=== PATIENT | male | born 1985 | race Hispanic/Latino ===

== ENCOUNTER 2018-03-31 11:30 | Emergency (ER) | payer SELFPAY | END 2018-03-31 12:37 | disposition home or self-care (01) | LOC: M ED 11:30 | DX: H10.31 Unspecified acute conjunctivitis, right eye (principal) | CPT/HCPCS: 99283 ==

== ENCOUNTER 2019-01-27 08:50 | Emergency (ER) | payer OTHER, SELFPAY ==
[~2019-01-27] VITALS: Ht 154.9 cm; Wt 59.6 kg
[~2019-01-27 08:50] MED LIST: ERYTOIN8 OD
[2019-01-27 08:51] VITALS: BP 121/63
--- NOTE | 2019-01-27 09:44 | REP ---
Trauma. PRIORS: None. TECHNIQUE: 4.5 mm contiguous transaxial sections were obtained from the skull base to the cerebral convexities with thin cuts through the posterior fossa without the administration of intravenous contrast. FINDINGS: The ventricles and sulci are consistent with the patient's age. There are no extra-axial fluid collections. There is no mass effect. The deep cerebral white matter is consistent with the patient's age. The orbital and petrous structures , cerebellopontine angles, and posterior fossa are unremarkable. The sella turcica, cavernous, and paracavernous structures are essentially unremarkable. The visualized portions of the paranasal sinuses and mastoid air cells are clear. Images of the skull base show no gross abnormality. IMPRESSION: Essentially unremarkable CT examination of the brain. Electronically Signed by Cristobal Pyle DO 01/27/2019 02:19 P
[2019-01-27] MEDS ORDERED: IBUPROFEN 600 MG TAB PO ONE (09:45)
--- NOTE | 2019-01-27 09:45 | REP ---
Trauma. PRIORS: None. There is no maxillofacial fracture. The paranasal sinuses and mastoid air cells are clear. There is no evidence of significant soft tissue swelling. There is chronic leftward nasal septal deviation. IMPRESSION: No acute disease. Electronically Signed by Cristobal Pyle DO 01/27/2019 02:19 P
[2019-01-27] MEDS ORDERED: IBUP-1022 PO (10:13)
== END 2019-01-27 10:25 | disposition home or self-care (01) ==
LOC: M ED 08:50
DX: S06.0X0A Concussion without loss of consciousness, initial encounter (principal); W55.89XA Other contact with other mammals, initial encounter; Y92.89 Other specified places as the place of occurrence of the external cause; Y93.9 Activity, unspecified; Y99.0 Civilian activity done for income or pay